=== PATIENT | male | born 2000 | race Caucasian/White ===

== ENCOUNTER 2021-02-22 12:44 | Emergency (ER) | payer BC, SELFPAY ==
[2021-02-22 13:07] VITALS: BP 139/71; PULSE 96; RESP 20; TEMP 37.2; O2SAT 99
--- NOTE | 2021-02-22 13:28 | ED.ABDPAIN ---
HPI - Abdominal Pain General Chief Complaint: Abdominal Pain Stated Complaint: abd pain Time Seen by Provider: 02/22/21 13:29 Source: patient Mode of arrival: ambulatory Limitations: no limitations History of Present Illness HPI narrative: Danilo Brito is a 21 yo male with PMH of migraines who states that he has had acidic taste and discomfort when he eats particularly last 2 weeks, he has also been drinking a lot of smart water. He denies abdominal pain but states that it is in the back of his throat and into the back of his mouth that he has this acidic taste; dry heaves in the last 2 days Related Data Home Medications Medication Instructions Recorded Confirmed sumatriptan succinate 25 mg PO DIRECTED 02/22/21 02/22/21 Allergies Allergy/AdvReac Type Severity Reaction Status Date / Time No Known Allergies Allergy Verified 02/22/21 13:07 Review of Systems Review of Systems: Narrative: CONSTITUTIONAL: Denies fever, chills, sweats. EYES: Denies visual changes, redness, discharge. ENT: Denies rhinorrhea, congestion, sore throat, otalgia. CARDIOVASCULAR: Denies chest pain, palpitations, edema. RESPIRATORY: Denies dyspnea, wheezing, cough GASTROINTESTINAL: Denies abdominal pain, nausea, vomiting, diarrhea. Has had epigastric discomfort and dry heaving GENITOURINARY: Denies dysuria, hematuria, abnormal discharge SKIN: Denies rash or itching. NEUROLOGIC: Denies numbness, or focal weakness. PSYCHIATRIC: Denies anxiety or depression. PMFSH Past Medical History Medical History No acute medical problems Family History Family History (Updated 02/22/21 @ 13:45 by Lo Hutchins CNP) Other No acute medical problems Social History Social History (Updated 02/22/21 @ 13:45 by Lo Hutchins CNP) Smoking status: Never smoker Alcohol intake: never Gender identity (if verbalized by the patient): Male Comments At time of signature, I agree with nursing past medical, surgical, social and family history. There is no relevant family history pertinent to the presenting complaint. Exam Narrative: Exam Narrative: GENERAL: This is a well-nourished, well-developed patient, in mild distress. HEAD: normocephalic, atraumatic. EYES: Sclera clear/white. Vision is grossly intact. EARS: External ears normal, Hearing grossly intact. NOSE: External nose normal without nasal discharge, nares without redness, no rhinorrhea. THROAT: Mucous membranes moist, posterior pharynx erythema NECK: Neck supple, non-tender CARDIOVASCULAR: Regular rate and rhythm without murmurs, gallops, or rubs. RESPIRATORY: Clear to auscultation. Breath sounds equal bilaterally. No wheezes, rales, or rhonchi. GASTROINTESTINAL: Abdomen soft, SKIN: warm, intact with no suspicious lesions or rash, good texture and turgor. NEURO: awake, alert, and oriented to person, place and time. There were no obvious focal neurologic abnormalities. Steady gait EXTREMITIES: Normal range of motion. BACK: Nontender without deformity Course Course Emergency Course: Patient comes here with complaints of acidic taste in mouth and some dry heaving in the last year or 2 after eating spicy foods Patient started on Pepcid and Tums To seek higher level of care if develops nausea vomiting diarrhea or abdominal pain with fever; otherwise follow-up with PCP Vital Signs Vital signs: Vital Signs Temperature 99.0 F 02/22/21 13:07 Pulse Rate 96 02/22/21 13:07 Respiratory Rate 20 02/22/21 13:07 Blood Pressure 139/71 02/22/21 13:07 Pulse Oximetry 99 02/22/21 13:07 Temperature 99.0 F 02/22/21 13:07 Pulse Rate 96 02/22/21 13:07 Respiratory Rate 20 02/22/21 13:07 Blood Pressure 139/71 02/22/21 13:07 Pulse Oximetry 99 02/22/21 13:07 MDM - Abdominal Pain Differential Diagnosis Differential diagnosis: Likely abdominal pain and other (GERD) Critical Care Time Critical Care T
== END 2021-02-22 13:54 | disposition home or self-care (01) ==
PROVIDERS: Emergency Provider Nurse Practitioner
DX: K21.9 Gastro-esophageal reflux disease without esophagitis (principal)
CPT/HCPCS: 99213; G0463